=== PATIENT | male | born 1960 | race African-American/Black ===

== ENCOUNTER 2020-03-30 12:00 | Emergency (ER) | payer OTHER ==
[~2020-03-30] VITALS: Ht 180.3 cm; Wt 73.0 kg
[~2020-03-30 12:00] MED LIST: METO5TAB2 PO
[2020-03-30] MEDS ORDERED: TETRACAINE 0.5% OPHTH DROPS 4ML LEFTEYE ONE (13:15)
[2020-03-30] MEDS ORDERED: FLUORESCEIN SODIUM 1MG/STRIP LEFTEYE ONE (13:15)
[2020-03-30 14:25] VITALS: BP 187/90
== END 2020-03-30 14:26 | disposition home or self-care (01) ==
LOC: ER 12:33
DX: H10.022 Other mucopurulent conjunctivitis, left eye (principal); I10 Essential (primary) hypertension; E78.00 Pure hypercholesterolemia, unspecified; H40.9 Unspecified glaucoma; Z86.73 Personal history of transient ischemic attack (TIA), and cerebral infarction without residual deficits; Z93.1 Gastrostomy status
CPT/HCPCS: 99283

== ENCOUNTER 2021-06-08 17:40 | Emergency (ER) | payer OTHER ==
[~2021-06-08] VITALS: Ht 180.3 cm; Wt 80.0 kg
[2021-06-08 18:09] VITALS: BP 147/103
[2021-06-08] MEDS ORDERED: SODIUM CHLORIDE 0.9% 1,000 ML IV ONE (20:00)
[2021-06-08 21:01] LABS: BASOPHILS % 0.2 % (0.0-2.0); EOSINOPHILS % 0.2 % (0.0-5.0); HEMATOCRIT. 52.2 % (42.0-52.0); HEMOGLOBIN. 17.9 g/dL (14.0-18.0); LYMPHOCYTES % 13.6 % (20.0-50.0); MEAN CORPUSCULAR HEMOGLOBIN 32.1 pg (28.0-32.0); MEAN CORPUSCULAR VOLUME 93.3 fL (80.0-94.0); MEAN PLATELET VOLUME 10.3 fl (7.4-10.4); MONOCYTES % 7.7 % (2.0-8.0); NEUTROPHILS % 78.3 % (40.0-76.0); PLATELET 219 x1000/uL (130-400); RED BLOOD CELL COUNT 5.59 mill/uL (4.7-6.1)
[2021-06-08 21:06] LABS: CHLORIDE 104 mEq/L (98-107)
== END 2021-06-09 01:21 | disposition home or self-care (01) ==
LOC: ER 17:40
DX: N17.9 Acute kidney failure, unspecified (principal); E78.00 Pure hypercholesterolemia, unspecified; I10 Essential (primary) hypertension
CPT/HCPCS: 36415; 74018; 80053; 83690; 85025; 96360; 99284; J7030

== ENCOUNTER 2023-03-15 13:49 | Emergency (ER) | payer OTHER ==
[~2023-03-15] VITALS: Ht 170.2 cm; Wt 65.0 kg
[2023-03-15 13:56] VITALS: O2SAT 96
[2023-03-15 22:00] VITALS: BP 118/80; PULSE 68; RESP 15; TEMP 98.6
== END 2023-03-15 22:22 | disposition home or self-care (01) ==
LOC: ER 14:08
DX: R06.02 Shortness of breath (principal); E78.00 Pure hypercholesterolemia, unspecified; I10 Essential (primary) hypertension; Z86.73 Personal history of transient ischemic attack (TIA), and cerebral infarction without residual deficits
CPT/HCPCS: 71045; 93005; 99283

== ENCOUNTER 2024-09-28 16:39 | Emergency (ER) | payer OTHER ==
[~2024-09-28] VITALS: Ht 172.7 cm; Wt 73.0 kg
[2024-09-28 16:57] VITALS: O2SAT 97
[2024-09-28] MEDS: SODIUM CHLORIDE 0.9% (SEPSIS BOLUS) IV ONE (17:25)
[2024-09-28] MEDS: PIPERACILLIN/TAZO 3.375G/50ML 50 ML IV ONE (17:25)
[2024-09-28] MEDS: VANCOMYCIN 1G PREMIX 200 ML IV ONE (18:00)
[2024-09-28 18:02] LABS: HEMATOCRIT. 43.7 % (42.0-52.0); HEMOGLOBIN. 14.4 g/dL (14.0-18.0); MEAN CORPUSCULAR HEMOGLOBIN 30.8 pg (28.0-32.0); MEAN CORPUSCULAR VOLUME 93.3 fL (80.0-94.0); MEAN PLATELET VOLUME 11.1 fl (7.4-10.4); PLATELET 174 x1000/uL (130-400); RED BLOOD CELL COUNT 4.68 mill/uL (4.7-6.1); RED CELL DISTRIBUTION WIDTH 14.9 % (11.6-14.6); WHITE BLOOD COUNT 13.7 x1000/uL (4.5-11.0)
[2024-09-28 18:08] LABS: DIFFERENTIAL COMMENT 1
[2024-09-28 18:16] LABS: TROPONIN I HIGH SENSITIVITY 18 ng/L (3.0-53)
[2024-09-28 18:23] LABS: CHLORIDE 99 mEq/L (98-107); POTASSIUM 4.3 mEq/L (3.5-5.1); SODIUM 137 mEq/L (136-145)
[2024-09-28 18:27] LABS: CARBON DIOXIDE 26 mEq/L (21-32)
[2024-09-28 18:28] LABS: CALCIUM 10.1 mg/dL (8.7-10.4)
[2024-09-28 18:32] LABS: CREATININE 1.7 mg/dL (0.6-1.3)
[2024-09-28 18:33] LABS: GLUCOSE 115 mg/dL (70-105); UREA NITROGEN BLOOD 30 mg/dL (9-23)
[2024-09-28 18:34] LABS: ALANINE AMINOTRANSFERASE 66 IU/L (10-49); ALBUMIN 4.4 g/dL (3.2-4.8); ASPARTATE AMINOTRANSFERASE 64 IU/L (<34)
[2024-09-28 18:35] LABS: BILIRUBIN DIRECT 0.2 mg/dL (<=3.0); BILIRUBIN TOTAL 0.7 mg/dL (0.1-1.0); PROTEIN TOTAL 8.6 g/dL (6.0-8.3)
[2024-09-28 18:40] LABS: ETHANOL BLOOD < 10 mg/dL (<10)
[2024-09-28 18:50] LABS: PLATELET ESTIMATE NORMAL
[2024-09-28 18:53] LABS: INR 1.1; PROTHROMBIN TIME 11.4 sec (9.6-11.0)
[2024-09-28 19:48] LABS: *AMPHETAMINES SCREEN URINE NEGATIVE (NEGATIVE); *BARBITURATES SCREEN URINE NEGATIVE (NEGATIVE); *BENZODIAZEPINES SCREEN URINE NEGATIVE (NEGATIVE); *COCAINE SCREEN URINE NEGATIVE (NEGATIVE); CANNABINOID URINE SCREEN NEGATIVE (NEGATIVE); ECSTASY MDMA SCREEN URINE NEGATIVE (NEGATIVE); METHADONE URINE SCREEN NEGATIVE (NEGATIVE); OPIATES URINE SCREEN NEGATIVE (NEGATIVE); PHENCYCLIDINE URINE SCREEN NEGATIVE (NEGATIVE)
[2024-09-28 20:00] LABS: CLARITY URINE CLEAR (CLEAR); COLOR URINE YELLOW (YELLOW); GLUCOSE URINE NEGATIVE (NEGATIVE); KETONES URINE NEGATIVE (NEGATIVE); LEUKOCYTE ESTERASE URINE 1+ (NEGATIVE); NITRITE URINE NEGATIVE (NEGATIVE); OCCULT BLOOD URINE NEGATIVE (NEGATIVE); PH URINE 7.5 (4.5-8.0); PROTEIN URINE 1+ (NEGATIVE); SPECIFIC GRAVITY URINE 1.017 (1.005-1.030); UROBILINOGEN URINE 0.2 E.U./dL (0.2-1.0)
[2024-09-28 20:07] LABS: TROPONIN I HIGH SENSITIVITY 24 ng/L (3.0-53)
[2024-09-28 20:27] LABS: RBC URINE 0-2 /hpf (0-2); SQUAMOUS EPITHELIAL CELL URINE RARE /lpf (RARE/1+)
[2024-09-28 20:28] LABS: BACTERIA URINE NONE SEEN
[2024-09-28 20:37] LABS: TROPONIN I HIGH SENSITIVITY 26 ng/L (3.0-53)
[2024-09-28 23:58] VITALS: BP 125/77; PULSE 93; RESP 19; TEMP 37; O2SAT 98
== END 2024-09-29 00:14 | disposition short-term general hospital (02) ==
LOC: ER 16:39 → EDBEDREQ 22:18 → ER 09-29 00:14
DX: A41.9 Sepsis, unspecified organism (principal); E78.00 Pure hypercholesterolemia, unspecified; I10 Essential (primary) hypertension; Z93.1 Gastrostomy status; Z86.73 Personal history of transient ischemic attack (TIA), and cerebral infarction without residual deficits; Z79.899 Other long term (current) drug therapy
CPT/HCPCS: 80076; 80305; 80048; 81003; 80320; 83605; 85025; 85610; 87040; 87086; 87186; 84484; 87077; 36415; 84145; 71045; 74176; 93005; 96367; 96365; 99291; J2543; J3370; J7030; G0480